=== PATIENT | female | born 1990 | race African-American/Black ===

== ENCOUNTER 2019-12-16 17:44 | Emergency (ER) | payer OTHER, SELFPAY ==
[2019-12-16 18:00] VITALS: BP 115/68; PULSE 90; RESP 18; TEMP 36.9; O2SAT 100
--- NOTE | 2019-12-16 18:22 | ED.HA ---
HPI - Headache General Chief Complaint: Headache Stated Complaint: Headache Time Seen by Provider: 12/16/19 17:52 Source: patient and family Mode of arrival: ambulatory Limitations: no limitations History of Present Illness HPI Narrative: 29 years old -[place] female history of migraine headache almost all her life with intermittent flareup, patient does not take any medication at home, usually come to the emergency room when the headache is the worst. This headache started few days ago, patient did not take any medications. MD elicited complaint: headache and migraine Onset description: gradually Location: left and frontal Severity: moderate Pain scale (0-10): 8 Exacerbating factors: exertion, light and noise Relieving factors: nothing Context: occurred at rest Associated symptoms: nausea and photophobia Treatments prior to arrival: none and other (Patient reports similar symptoms numerous times in the past. Patient looking for a neurologist.) Related Data Allergies Allergy/AdvReac Type Severity Reaction Status Date / Time No Known Allergies Allergy Unknown Verified 12/16/19 18:05 Review of Systems Review of Systems: Narrative: CONSTITUTIONAL: Denies fever, chills, or sweats. EYES: Denies visual changes, redness, or discharge. ENT: Denies rhinorrhea, congestion, sore throat, or otalgia. CARDIOVASCULAR: Denies chest pain, palpitations, or edema. RESPIRATORY: Denies cough or dyspnea. GASTROINTESTINAL: Denies abdominal pain, nausea, vomiting, or diarrhea. GENITOURINARY: Denies dysuria or hematuria. SKIN: Denies rash or itching. MUSCULOSKELETAL: Denies back pain, joint pain, or myalgia. NEUROLOGIC: Denies headache, numbness, or weakness. PSYCHIATRIC: Denies anxiety or depression. PMFSH Social History Social History Gender identity (if verbalized by the patient): Female Exam Narrative: Exam Narrative: General appearance: Well-developed, well-nourished, family member at the bedside. Skin: Normal color Head: Normocephalic, nontraumatic Eyes: Clear conjunctiva ENT: Oropharynx normal, ears normal, nose normal Neck: Supple, nontender Chest and respiratory: Airway patent, no respiratory distress, no accessory muscle use Heart: Regular rate/rhythm Abdomen: Soft, nontender, no organomegaly, quiet bowel sounds Vascular: Normal peripheral pulses, normal capillary refill. Musculoskeletal: Normal range of motion, nontender back Neurologic: Alert and oriented ?3, [employer] is normal as tested, no gross motor deficit Course Course Emergency Course: Improving Vital Signs Vital signs: Vital Signs Temperature 36.9 C 12/16/19 18:00 Pulse Rate 90 12/16/19 18:00 Respiratory Rate 18 12/16/19 18:00 Blood Pressure 115/68 12/16/19 18:00 Pulse Oximetry 100 12/16/19 18:00 Temperature 36.9 C 12/16/19 18:00 Pulse Rate 90 12/16/19 18:00 Respiratory Rate 18 12/16/19 18:00 Blood Pressure 115/68 12/16/19 18:00 Pulse Oximetry 100 12/16/19 18:00 MDM - Headache MDM Narrative Medical decision making narrative: Patient report having similar headaches numerous times in the past secondary to migraine, does not have a neurologist, would like to have 1. Patient usually gets better on migraine cocktail including normal saline, Toradol and Reglan. Differential Diagnosis Differential diagnosis: Likely migraine, tension headache and headache Critical Care Time Critical Care Time Critical Care Time: No Discharge Plan Discharge Clinical Impression: Migraine Patient Disposition: Home, Self-Care Condition: Improved Instructions: Migraine Headache (ED) Additional In
[2019-12-16] MEDS: KETOROLAC 30 MG/ML VIAL (*BKC) IV PUSH (18:46)
[2019-12-16] MEDS: LACTATED RINGERS 1,000 ML 999 ML IV CONT (18:46)
[2019-12-16] MEDS: METOCLOPRAMIDE HCL INJ 10 MG/2 ML VIAL IV PUSH (18:46)
== END 2019-12-16 20:01 | disposition home or self-care (01) ==
PROVIDERS: Emergency Provider Emergency Medicine
DX: G43.909 Migraine, unspecified, not intractable, without status migrainosus (principal)
CPT/HCPCS: 96361; 96374; 96375; 99284; J1200; J1885; J2765; J7120

== ENCOUNTER 2020-04-26 18:54 | Emergency (ER) | payer SELFPAY ==
[2020-04-26 19:06] VITALS: BP 129/78; PULSE 65; RESP 18; TEMP 36.4; O2SAT 100
[2020-04-26] MEDS: SODIUM CHLORIDE 0.9% IV 1,000 ML 999 ML IV CONT (19:40)
[2020-04-26] MEDS: KETOROLAC 30 MG/ML VIAL (*BKC) IV PUSH (19:41)
[2020-04-26] MEDS: METOCLOPRAMIDE HCL INJ 10 MG/2 ML VIAL IV PUSH (19:42)
[2020-04-26] MEDS: FAMOTIDINE 20 MG/2 ML VIAL IV PUSH (19:43)
--- NOTE | 2020-04-26 19:47 | ED.GENADULT ---
HPI - General Adult General Chief complaint: Headache Stated complaint: MIGRAINE H/A Time Seen by Provider: 04/26/20 18:59 Source: patient Mode of arrival: ambulatory Limitations: no limitations History of Present Illness HPI narrative: Patient is a 30-year-old female who presents with history of chronic headaches noting that she has been having increasing headache over the last several days is currently not seeing any specialists for her symptoms patient presents per private vehicle patient denies recent illness injury or trauma patient with history of chronic migraines secondary to Chiari malformation for which she has surgery in the past for but is not followed by any specialist at this time and is currently between primary care doctor Related Data Allergies Allergy/AdvReac Type Severity Reaction Status Date / Time No Known Allergies Allergy Unknown Verified 04/26/20 19:08 Review of Systems Review of Systems: All systems reviewed & are unremarkable except as noted in HPI and below PMFSH Past Medical History Medical History Migraine headache Surgical History Surgical History H/O brain surgery Social History Social History Substance use type: marijuana Gender identity (if verbalized by the patient): Female Exam Narrative: Exam Narrative: GENERAL: Well-appearing, well-nourished, and in no acute distress. HEAD: Normocephalic, atraumatic. EYES: PERRLA and EOMI. ENT: Nares clear, no rhinorrhea or epistaxis. Mucous membranes moist. CHEST: Clear to auscultation. No respiratory distress. No wheezes rales or rhonchi HEART: Regular rate and rhythm. No murmur heard. EXTREMITIES: Normal range of motion. No edema. SKIN: Warm, dry, no rash. NEURO: No focal deficits. Alert and oriented x3. Cranial nerves II through XII grossly intact. Normal speech and gait PSYCH: Normal mood and affect. Course Course Emergency Course: Patient in the room at this time in no distress will be medicated and advised to follow with primary care for further evaluation of the migraine headaches Vital Signs Vital signs: Vital Signs Temperature 97.6 F 04/26/20 19:06 Pulse Rate 65 04/26/20 19:06 Respiratory Rate 18 04/26/20 19:06 Blood Pressure 129/78 04/26/20 19:06 Pulse Oximetry 100 04/26/20 19:06 Temperature 97.6 F 04/26/20 19:06 Pulse Rate 65 04/26/20 19:06 Respiratory Rate 18 04/26/20 19:06 Blood Pressure 129/78 04/26/20 19:06 Pulse Oximetry 100 04/26/20 19:06 Medical Decision Making MDM Narrative Medical decision making narrative: Patients headache was not sudden or maximal in onset. There are o focal neurological deficits on exam. Subarachnoid hemorrhage is felt to be unlikey at this time. There is no history of fever, and neck is supple without meningismus, making meningitis unlikely. No traumatic history or signs of trauma on exam. No risk factors for CVA, risk factors reviewed. NO ocular signs on exam and in history to suggest acute glaucoma. Patients headache is felt to be a reasonable candidate for outpatient evaluation Vital Signs Vital Signs: Vital Signs Temperature 97.6 F 04/26/20 19:06 Pulse Rate 65 04/26/20 19:06 Respiratory Rate 18 04/26/20 19:06 Blood Pressure 129/78 04/26/20 19:06 Pulse Oximetry 100 04/26/20 19:06 Temperature 97.6 F 04/26/20 19:06 Pulse Rate 65 04/26/20 19:06 Respiratory Rate 18 04/26/20 19:06 Blood Pressure 129/78 04/26/20 19:06 Pulse Oximetry 100 04/26/20 19:06 Discharge Plan Discharge Clinical Impression: Migraine Patient Disposition: Home, Self-Care Condition: Stable Instructions: Antibiotic Form, Migraine Headache (ED) Additional Instructions: Follow up with your primary care doctor in 5-7 days for re-evaluation. Go to ER for wors
[2020-04-26] MEDS: LORAZEPAM INJ 2 MG/ML VIAL 1 MG IV PUSH (19:51)
[2020-04-26 20:54] VITALS: BP 142/78; PULSE 76; RESP 18; O2SAT 99
== END 2020-04-26 20:57 | disposition home or self-care (01) ==
PROVIDERS: Emergency Provider Emergency Medicine
DX: G43.909 Migraine, unspecified, not intractable, without status migrainosus (principal)
CPT/HCPCS: 96361; 96374; 96375; 99284; J1200; J1885; J2060; J2765; J7030

== ENCOUNTER 2020-08-03 16:20 | Emergency (ER) | payer MEDICARE, SELFPAY ==
[2020-08-03 17:37] VITALS: BP 109/64; PULSE 72; RESP 18; TEMP 36.2; O2SAT 100
--- NOTE | 2020-08-03 18:58 | ED.ANIMALBIT ---
HPI - Animal Bite General Chief Complaint: Animal Bite Stated Complaint: DOG BITE TO R HAND Time Seen by Provider: 08/03/20 17:49 Source: patient Mode of arrival: ambulatory Limitations: no limitations History of Present Illness HPI narrative: Patient presents for evaluation of dog bite on her right second digit that she sustained a few hours ago from her cousin's dog. She states she is not sure if the dog is up-to-date on vaccinations but appears well. Patient states that she came to the emergency department because she wants to be updated on her tetanus and wants medication to decrease swelling and discomfort. She reports she was lightly bitten by the dog and denies any bony tenderness. Patient denies chance for due to absence. Patient denies any allergies to any medications or antibiotics. Related Data Allergies Allergy/AdvReac Type Severity Reaction Status Date / Time No Known Allergies Allergy Unknown Verified 08/03/20 17:46 Review of Systems Review of Systems: Narrative: CONSTITUTIONAL: Denies fever, chills, or sweats. EYES: Denies visual changes, redness, or discharge. ENT: Denies rhinorrhea, congestion, sore throat, or otalgia. CARDIOVASCULAR: Denies chest pain, palpitations, or edema. RESPIRATORY: Denies cough or dyspnea. GASTROINTESTINAL: Denies abdominal pain, nausea, vomiting, or diarrhea. GENITOURINARY: Denies dysuria or hematuria. SKIN: Reports dog bite denies rash or itching. MUSCULOSKELETAL: Denies back pain, joint pain, or myalgia. NEUROLOGIC: Denies headache, numbness, dizziness, or weakness. PSYCHIATRIC: Denies anxiety or depression. [facility], [facility] Social History Social History Substance use type: marijuana Gender identity (if verbalized by the patient): Female Exam Narrative: Exam Narrative: GENERAL: Well-appearing, well-nourished, and in no acute distress. HEAD: Normocephalic, atraumatic. EYES: PERRLA and EOMI. ENT: Nares clear, no rhinorrhea or epistaxis. Mucous membranes moist. Oropharynx without tonsillar hypertrophy exudate or other lesions. Bilateral TMs pearly matias nonbulging CHEST: Clear to auscultation. No respiratory distress. No wheezes rales or rhonchi HEART: Regular rate and rhythm. EXTREMITIES: Normal range of motion. No edema. SKIN: Superficial dog bite injury with mild swelling to the right second digit. Wound not gaping bleeding or draining. No bony tenderness with palpation. NEURO: No focal deficits. Alert and oriented x3. PSYCH: Normal mood and affect. Course Vital Signs Vital signs: Vital Signs Temperature 97.1 F L 08/03/20 17:37 Pulse Rate 72 08/03/20 17:37 Respiratory Rate 18 08/03/20 17:37 Blood Pressure 109/64 08/03/20 17:37 Pulse Oximetry 100 08/03/20 17:37 Temperature 97.1 F L 08/03/20 17:37 Pulse Rate 72 08/03/20 17:37 Respiratory Rate 18 08/03/20 17:37 Blood Pressure 109/64 08/03/20 17:37 Pulse Oximetry 100 08/03/20 17:37 MDM - Animal Bite MDM Narrative Medical decision making narrative: Patient denies chance of due to absence of the need for test. Patient will be prescribed naproxen for discomfort and swelling. Patient instructed to take Augmentin as directed to reduce chance of infection. Patient has been updated on Tdap. Patient struck to wash area with antibacterial soap and apply antibacterial ointment and to follow-up if any signs of infection present. Differential Diagnosis Differential diagnosis: Likely bite by animal, cat bite and dog bite Discharge Plan Discharge Clinical Impression: Dog bite Qualifiers: Encounter type: initial encounter Qualified Code(s): W54.0XXA - Bitten by dog, initial encounter Patient Disposition: Home, Self-Care Condition: Stable Instructions: Antibiotic Form, Animal Bite (ED) Additional Instructions: Wash area with antibacterial soap and apply antibacterial ointment. Take Augmentin as directed
[2020-08-03 19:50] VITALS: BP 118/61; PULSE 76; RESP 21; TEMP 36.7; O2SAT 100
[2020-08-03] MEDS: TETANUS,DIPHTHERIA,AC PERTUSSIS ADULT (0.5 ML) BOOSTRIX IM (19:53)
== END 2020-08-03 19:56 | disposition home or self-care (01) ==
PROVIDERS: Emergency Provider Emergency Medicine
DX: S61.250A Open bite of right index finger without damage to nail, initial encounter (principal); W54.0XXA Bitten by dog, initial encounter; Z23 Encounter for immunization
CPT/HCPCS: 90471; 90715; 99283

== ENCOUNTER 2021-10-21 12:21 | Emergency (ER) | payer MEDICARE, SELFPAY ==
[2021-10-21 12:29] VITALS: BP 118/74; PULSE 63; RESP 16; TEMP 36.5; O2SAT 100
[2021-10-21 14:54] VITALS: BP 121/75; PULSE 68; RESP 16; TEMP 36.8; O2SAT 98
[2021-10-21 16:42] VITALS: BP 123/83; PULSE 70; RESP 18; O2SAT 100
--- NOTE | 2021-10-21 18:03 | ED.HA ---
HPI - Headache General Chief Complaint: Headache Stated Complaint: mirgraine Time Seen by Provider: 10/21/21 17:40 Source: patient, RN notes reviewed and old records reviewed Mode of arrival: ambulatory Limitations: no limitations History of Present Illness HPI Narrative: This is a 31 year old female with history of chiaria malformation and chronic headaches who presents for evaluation of worsening headache. Patient states she has daily headaches but they have worsened over past 4 days. Her pain is always located posterior headache to behind her eyes. She denies nausea, vomiting or weakness, but she reports photophobia. She denies fever or chills. She does not take any medication for headaches regularly . She has not taken any medicatoin since yesterday. Related Data Allergies Allergy/AdvReac Type Severity Reaction Status Date / Time No Known Allergies Allergy Unknown Verified 10/21/21 16:47 Review of Systems Review of Systems: All systems reviewed & are unremarkable except as noted in HPI and below PMFSH Past Medical History Medical History (Updated 10/22/21 @ 00:01 by Gómez Cummins) Migraine headache Surgical History Surgical History H/O brain surgery Social History Social History Substance use type: marijuana Gender identity (if verbalized by the patient): Female Exam Const: General: no acute distress and alert Orientation/consciousness: patient oriented x3 HENMT: Head: normocephalic and atraumatic Ears: TM's normal bilaterally Face and sinus: normal facial exam, sinuses nontender and face symmetric Mouth: Yes Normal oral and palatal mucosa present, Yes lip normal, Yes oropharynx normal and Yes moist mucous membranes Throat: posterior oropharynx normal Eyes: Pupils: Equal, round and reactive pupils present EOM: EOMs intact bilaterally Chest: Chest palpation & inspection: normal inspection of the chest Resp: Effort & Inspection: normal respiratory effort and no retractions Auscultation: clear to auscultation bilaterally Cardio: Rate: regular rate Rhythm: regular rhythm Heart sounds: no murmurs GI: GI Palp: Yes Soft to palpation, No Tenderness to palpation present (GI) and No Guarding due to palpation present (GI) Auscultation: normal bowel sounds Skin: General skin exam: normal color Rashes: no rashes Neuro: General: patient oriented x3, moves all extremities and CN's II-XI intact bilaterally Extrem: General: normal to inspection Psych: Mental Status: mental status grossly normal Affect: normal affect Course Reevaluation(s) Reevaluation #1: Patient told nursing staff she feels way better and she is ready for discharge home. Date: 10/21/21 Time: 19:31 Vital Signs Vital signs: Vital Signs Temperature 97.7 F 10/21/21 12:29 Pulse Rate 63 10/21/21 12:29 Respiratory Rate 16 10/21/21 12:29 Blood Pressure 118/74 10/21/21 12:29 Pulse Oximetry 100 10/21/21 12:29 Temperature 98.2 F 10/21/21 14:54 Pulse Rate 70 10/21/21 16:42 Respiratory Rate 18 10/21/21 16:42 Blood Pressure 123/83 10/21/21 16:42 Pulse Oximetry 100 10/21/21 16:42 Discharge Plan Discharge Clinical Impression: Chronic headache, Tension headache Patient Disposition: Home, Self-Care Condition: Stable Instructions: Antibiotic Form, Acute Headache (ED) Additional Instructions: Please follow up with your primary care physician to discuss further treatment of your headache. Prescriptions: No Action amoxicillin-pot clavulanate [Augmentin] 875-125 mg tablet 1 tablet PO Q12H Qty: 14 RF: 0 naproxen 500 mg tablet 500 mg PO BID PRN (Reason: pain) Qty: 20 RF: 0 Follow-up/Referrals: PHYSICIAN NOT ON STAFF,NONSTAFF [Primary Care Provider] -
[2021-10-21] MEDS: KETOROLAC 30 MG/ML VIAL (*BKC) IV PUSH (18:18)
[2021-10-21] MEDS: SODIUM CHLORIDE 0.9% IV 1,000 ML 999 ML IV CONT (18:18)
[2021-10-21] MEDS: METOCLOPRAMIDE HCL INJ 10 MG/2 ML VIAL IV PUSH (18:18)
[2021-10-21] MEDS: diphenhydrAMINE HCl INJ 50 MG/ML VIAL 25 MG IV PUSH (18:18)
== END 2021-10-21 19:51 | disposition home or self-care (01) ==
PROVIDERS: Emergency Provider General Practice
DX: G44.229 Chronic tension-type headache, not intractable (principal); Z86.69 Personal history of other diseases of the nervous system and sense organs
CPT/HCPCS: 96361; 96374; 96375; 99284; J1200; J1885; J2765; J7030